=== PATIENT | male | born 1940 | race Caucasian/White ===

== ENCOUNTER 2017-01-18 08:00 | Day surgery (SDC) | payer BC, MEDICARE ==
[~2017-01-18 08:00] MED LIST: ACETAMINOPHEN325 M2 PO; ACYCLOVIR400 M1 PO; ADVIL200 MG; ADVIL200 MG PO; ALBUTEROL2.5 MG/0.1 IH; ALIGN4 M1 PO; AMOX TR-K CLV1 EAC4 PO; AMOXICILLIN875 M1 PO; ANTIVERT12.5 MG PO; ASPIR 8181 M1 PO; ASPIR-TRIN325 M2 PO; ATIVAN0.5 M1 PO; AZITHROMYCIN250 M1 PO; BENTYL10 M1 PO; BENTYL20 M1 PO; CHEMO; CIPRO500 M2 PO; CLEOCIN HCL300 M1 PO; COLACE100 M1 PO; CYCLOBENZAPRINE10 M1 PO; DARVOCET-N 1001 TAB; DEXAMETHASONE4 M1 PO; DIFLUCAN100 M1 PO; DOXYCYCLINE HY100 M3 PO; DURAGESIC1 EAC5 TD; EXTRA STRENGTH500 MG PO; FLAGYL500 M1 PO; FLEXERIL5 MG PO; FLONASE ALLERG9.9 ML; FLOXIN OTIC5 M1 OT; GAS RELIEF125 M4 PO; H PO; HYLANDS LEG CRAMP PO; HYOSCYAMINE0.125 M2 PO; IMODIUM A-D2 M4 PO; IMODIUM MULTI-1 EAC1 PO; IRON325 M1 PO; KEFLEX500 M4 PO; LASIX20 M1 PO; LEVAQUIN750 M1 PO; LEVSIN0.125 M1 SL; LOMOTIL 2.5-0.1 EACH PO; LOVENOX150 MG/1 M SC; METOPROLOL TART25 M1 PO; MILK OF MAGNESIA PO; MIRALAX17 G2 PO; MULTIVITAMINS1 EAC7 PO; NORCO 5-325 TA1 EACH PO; NORCO 5/325 TAB1 TAB PO; NORVASC10 M2 PO; OXYCONTIN; OXYCONTIN10 M2; PAIN RELIEF500 M4 PO; PEPCID20 MG PO; PERCOCET 5-3251 EACH PO; PERCOCET 5/3251 TAB PO; PREDNISONE10 M1 PO; PREDNISONE20 M1 PO; PREDNISONE5 M1 PO; PRINIVIL20 M1 PO; PROBIOTIC BLEN1 EACH PO; PROMETHAZINE HC25 M3 PO; PROMETHAZINE V120 ML PO; REVLIMID; REVLIMID PO; REVLIMID25 M1 PO; SULFAMYLON SOL250 M1 TOP; TESSALON PERLE100 M1 PO; TYLENOL ARTHRI650 M1 PO; TYLENOL ARTHRI650 MG PO; ULTRAM50 M1 PO; VALIUM5 M1 PO; VELCADE3.5 MG/VIA IV; VIBERZI100 MG PO; VOLTAREN100 G1 TD; VOLTAREN100 G1 TOP; XARELTO20 M1 PO; ZANTAC150 M1 PO; ZESTRIL20 M2 PO; ZESTRIL20 M3 PO; ZESTRIL20 MG; ZITHROMAX250 M1 PO; ZOFRAN ODT8 MG PO; ZOMETA; ZOMETA4 MG/5 M1; ZOMETA4 MG/5 M1 IV; ZOVIRAX200 M1 PO; [UNRECOGNIZED DRUG - REMARK]; [UNRECOGNIZED DRUG - REMARK]
[2017-01-18] MEDS ORDERED: INVOKANA100 MG PO (09:14)
[2017-01-18 10:04] LABS: BASO % 0.3 % (0-2); EOS % 1.4 % (0-7); EOSINOPHIL ABSOLUTE COUNT 0.1 tho/cmm (0.0-0.7); HCT-HEMATOCRIT 42.4 % (36.0-53.5); HGB-HEMOGLOBIN 13.8 gm/dl (13.5-17.0); IMMATURE GRANULOCYTES ABSOLUTE 0.06 tho/cmm (0-0.03); IMMATURE GRANULOCYTES PERCENT 0.8 % (0-0.3); LYMPH % 26.2 % (20-45); LYMPH ABSOLUTE COUNT 1.9 tho/cmm (0.8-4.5); MCH (MEAN CORPUSCULAR HGB) 30.1 pg (28.0-32.0); MCHC MEAN CORPUSCULAR HGB CONC 32.5 % (32.0-36.0); MCV (MEAN CELL VOLUME) 92.6 fl (82.0-96.0); MEAN PLATELET VOLUME 9.1 cmc (9.4-12.4); MONO % 9.6 % (0-12); MONOCYTE ABSOLUTE COUNT 0.7 tho/cmm (0.0-1.2); NEUTROPHIL ABSOLUTE COUNT 4.5 tho/cmm (1.6-8.0); NEUTROPHIL-AUTOMATED 4.5 tho/cmm (1.6-8.0); NEUTROPHILS % 61.7 % (40-80); PLATELET COUNT 181 tho/cmm (150-450); RED BLOOD COUNT 4.58 mil/cmm (4.40-5.70); RED CELL DISTRIBUTION WIDTH 15.9 % (12.4-16.4); WHITE BLOOD COUNT 7.4 tho/cmm (4.0-10.0)
[2017-01-18 10:29] LABS: ANION GAP 13 mmol/L (0-20); BLOOD UREA NITROGEN 27 mg/dl (6-24); CALCIUM 8.5 mg/dl (8.5-10.5); CARBON DIOXIDE-VENOUS 27 mmol/L (22-32); CHLORIDE 106 mmol/l (96-110); CREATININE 1.04 mg/dl (0.60-1.30); GLUCOSE 144 mg/dL (70-110); POTASSIUM 3.9 mmol/L (3.7-5.1); SODIUM 142 mmol/L (135-145); eGFR VALUE FOR BLACK 80 mL/Min
[2017-01-19] MEDS ORDERED: NORCO 5-325 TA1 EACH PO (19:45)
[2017-01-19] MEDS ORDERED: CYCLOBENZAPRINE5 M1 PO (21:11)
[2017-02-19] MEDS ORDERED: INVOKANA100 MG PO (12:09)
[2017-02-19] MEDS ORDERED: METOPROLOL TART25 M1 PO (12:09)
[2017-02-19] MEDS ORDERED: XARELTO20 M1 PO (12:09)
[2017-02-19] MEDS ORDERED: NORVASC10 M2 PO (12:09)
[2017-02-19] MEDS ORDERED: HYDROCODON-ACE1 EA16 PO (12:10)
[2017-02-19] MEDS ORDERED: PREDNISONE5 M1 PO (12:10)
[2017-02-19] MEDS ORDERED: ACYCLOVIR400 M1 PO (12:11)
[2017-02-19] MEDS ORDERED: DICLOFENAC SOD100 GM TP (12:11)
[2017-02-19] MEDS ORDERED: VIBERZI100 MG PO (12:12)
[2017-02-19] MEDS ORDERED: DICYCLOMINE HCL20 M1 PO (12:12)
[2017-02-19] MEDS ORDERED: LEG CRAMPS PM PO (12:12)
[2017-02-19] MEDS ORDERED: ZANTAC150 M1 PO (12:13)
[2017-02-19] MEDS ORDERED: CERTAVITE-ANTI1 EACH PO (12:13)
[2017-02-19] MEDS ORDERED: LOPERAMIDE2 M2 PO (12:13)
[2017-02-19] MEDS ORDERED: AREDIA IV (15:31)
[2017-03-28] MEDS ORDERED: DUCODYL5 M1 PO (14:30)
[2017-03-28] MEDS ORDERED: AREDIA (14:32)
[2017-03-28] MEDS ORDERED: BENTYL10 M1 PO (14:33)
[2017-03-28] MEDS ORDERED: DICLOFENAC SOD100 M2 PO (14:35)
[2017-03-28] MEDS ORDERED: VIBERZI100 MG PO (14:37)
[2017-04-06] MEDS ORDERED: ULTRAM50 M1 PO (09:59)
[2017-04-06] MEDS ORDERED: OXYCODONE HCL5 M1 PO (10:00)
[2017-04-06] MEDS ORDERED: MOBIC7.5 M2 PO (10:00)
[2017-04-27] MEDS ORDERED: FLOMAX0.4 M1 PO (11:05)
[2017-04-27] MEDS ORDERED: MOBIC7.5 M2 PO (11:06)
[2017-04-27] MEDS ORDERED: FLUOXETINE HCL10 M2 PO (11:07)
== END 2017-01-18 13:10 ==
LOC: SRG 08:00 → SHSB 08:01 → ORE 11:20 → SHSB 11:58
PROVIDERS: Anesthesiology
PROC: 0Y6P0Z1 Detachment at Right 1st Toe, High, Open Approach (ICD-10-PCS; principal; 2017-01-18)
DX: M86.171 Other acute osteomyelitis, right ankle and foot (principal); L97.519 Non-pressure chronic ulcer of other part of right foot with unspecified severity; M17.0 Bilateral primary osteoarthritis of knee; M50.30 Other cervical disc degeneration, unspecified cervical region; I12.9 Hypertensive chronic kidney disease with stage 1 through stage 4 chronic kidney disease, or unspecified chronic kidney disease; E11.22 Type 2 diabetes mellitus with diabetic chronic kidney disease; N18.3 Chronic kidney disease, stage 3 (moderate); N17.9 Acute kidney failure, unspecified; F41.9 Anxiety disorder, unspecified; K21.9 Gastro-esophageal reflux disease without esophagitis; C90.00 Multiple myeloma not having achieved remission; Z79.01 Long term (current) use of anticoagulants; Z79.52 Long term (current) use of systemic steroids; Z79.84 Long term (current) use of oral hypoglycemic drugs; Z79.899 Other long term (current) drug therapy; Z88.2 Allergy status to sulfonamides; Z87.891 Personal history of nicotine dependence; Z86.718 Personal history of other venous thrombosis and embolism; Z89.421 Acquired absence of other right toe(s); Z89.412 Acquired absence of left great toe; Z98.41 Cataract extraction status, right eye; Z98.42 Cataract extraction status, left eye; Z98.890 Other specified postprocedural states
CPT/HCPCS: J0690; J1720; J2250

== ENCOUNTER 2017-01-19 19:34 | Emergency (ER) | payer BC, MEDICARE ==
[~2017-01-19 19:34] MED LIST changes: +INVOKANA100 MG PO
[2017-01-19] MEDS ORDERED: NORCO 5-325 TA1 EACH PO (19:45)
[2017-01-19] MEDS ORDERED: CYCLOBENZAPRINE5 M1 PO (21:11)
[2017-02-19] MEDS ORDERED: INVOKANA100 MG PO (12:09)
[2017-02-19] MEDS ORDERED: NORVASC10 M2 PO (12:09)
[2017-02-19] MEDS ORDERED: METOPROLOL TART25 M1 PO (12:09)
[2017-02-19] MEDS ORDERED: XARELTO20 M1 PO (12:09)
[2017-02-19] MEDS ORDERED: PREDNISONE5 M1 PO (12:10)
[2017-02-19] MEDS ORDERED: HYDROCODON-ACE1 EA16 PO (12:10)
[2017-02-19] MEDS ORDERED: ACYCLOVIR400 M1 PO (12:11)
[2017-02-19] MEDS ORDERED: DICLOFENAC SOD100 GM TP (12:11)
[2017-02-19] MEDS ORDERED: LEG CRAMPS PM PO (12:12)
[2017-02-19] MEDS ORDERED: DICYCLOMINE HCL20 M1 PO (12:12)
[2017-02-19] MEDS ORDERED: VIBERZI100 MG PO (12:12)
[2017-02-19] MEDS ORDERED: ZANTAC150 M1 PO (12:13)
[2017-02-19] MEDS ORDERED: LOPERAMIDE2 M2 PO (12:13)
[2017-02-19] MEDS ORDERED: CERTAVITE-ANTI1 EACH PO (12:13)
[2017-02-19] MEDS ORDERED: AREDIA IV (15:31)
[2017-03-28] MEDS ORDERED: DUCODYL5 M1 PO (14:30)
[2017-03-28] MEDS ORDERED: AREDIA (14:32)
[2017-03-28] MEDS ORDERED: BENTYL10 M1 PO (14:33)
[2017-03-28] MEDS ORDERED: DICLOFENAC SOD100 M2 PO (14:35)
[2017-03-28] MEDS ORDERED: VIBERZI100 MG PO (14:37)
[2017-04-06] MEDS ORDERED: ULTRAM50 M1 PO (09:59)
[2017-04-06] MEDS ORDERED: OXYCODONE HCL5 M1 PO (10:00)
[2017-04-06] MEDS ORDERED: MOBIC7.5 M2 PO (10:00)
[2017-04-27] MEDS ORDERED: FLOMAX0.4 M1 PO (11:05)
[2017-04-27] MEDS ORDERED: MOBIC7.5 M2 PO (11:06)
[2017-04-27] MEDS ORDERED: FLUOXETINE HCL10 M2 PO (11:07)
== END 2017-01-19 21:44 ==
LOC: EDMED 19:34
DX: M54.5 Low back pain (principal); I10 Essential (primary) hypertension; Z86.718 Personal history of other venous thrombosis and embolism; Z85.79 Personal history of other malignant neoplasms of lymphoid, hematopoietic and related tissues; Z79.899 Other long term (current) drug therapy; Z87.891 Personal history of nicotine dependence
CPT/HCPCS: J2270; J2360

== ENCOUNTER 2017-02-24 21:45 | Inpatient (IN) | payer BC, MEDICARE ==
[~2017-02-24 21:45] MED LIST changes: +AREDIA IV; +CERTAVITE-ANTI1 EACH PO; +CYCLOBENZAPRINE5 M1 PO; +DICLOFENAC SOD100 GM TP; +DICYCLOMINE HCL20 M1 PO; +HYDROCODON-ACE1 EA16 PO; +LEG CRAMPS PM PO; +LOPERAMIDE2 M2 PO
[2017-02-24 22:41] LABS: BASO % 0.3 % (0-2); EOS % 5.7 % (0-7); EOSINOPHIL ABSOLUTE COUNT 0.4 tho/cmm (0.0-0.7); HCT-HEMATOCRIT 40.3 % (36.0-53.5); HGB-HEMOGLOBIN 13.1 gm/dl (13.5-17.0); IMMATURE GRANULOCYTES ABSOLUTE 0.01 tho/cmm (0-0.03); IMMATURE GRANULOCYTES PERCENT 0.1 % (0-0.3); LYMPH % 23.3 % (20-45); LYMPH ABSOLUTE COUNT 1.6 tho/cmm (0.8-4.5); MCH (MEAN CORPUSCULAR HGB) 30.1 pg (28.0-32.0); MCHC MEAN CORPUSCULAR HGB CONC 32.5 % (32.0-36.0); MCV (MEAN CELL VOLUME) 92.6 fl (82.0-96.0); MEAN PLATELET VOLUME 9.1 cmc (9.4-12.4); MONOCYTE ABSOLUTE COUNT 0.7 tho/cmm (0.0-1.2); NEUTROPHIL ABSOLUTE COUNT 4.2 tho/cmm (1.6-8.0); NEUTROPHIL-AUTOMATED 4.2 tho/cmm (1.6-8.0); NEUTROPHILS % 60.6 % (40-80); PLATELET COUNT 202 tho/cmm (150-450); RED BLOOD COUNT 4.35 mil/cmm (4.40-5.70); RED CELL DISTRIBUTION WIDTH 15.3 % (12.4-16.4); WHITE BLOOD COUNT 6.9 tho/cmm (4.0-10.0)
[2017-02-24 22:46] LABS: INR 1.2 INR (0.9-1.1); PROTHROMBIN TIME 13.5 SECONDS (9.0-13.6)
[2017-02-24 23:00] LABS: ALBUMIN 3.4 g/dl (3.5-5.0); ALKALINE PHOSPHATASE 41 U/L (33-138); ALT/SGPT 24 U/L (12-78); AMYLASE 197 U/L (20-90); ANION GAP 15 mmol/L (0-20); AST/SGOT 24 U/L (10-40); BILIRUBIN,TOTAL 0.3 mg/dl (0.0-1.5); BLOOD UREA NITROGEN 18 mg/dl (6-24); CALCIUM 8.7 mg/dl (8.5-10.5); CARBON DIOXIDE-VENOUS 25 mmol/L (22-32); CHLORIDE 105 mmol/l (96-110); GLUCOSE 142 mg/dL (70-110); POTASSIUM 3.9 mmol/L (3.7-5.1); SODIUM 141 mmol/L (135-145); eGFR VALUE FOR BLACK 74 mL/Min
[2017-02-24 23:01] LABS: LIPASE 3638 U/L (73-393)
[2017-02-25 03:36] LABS: MAGNESIUM 1.8 mg/dl (1.8-2.6); PHOSPHOROUS 3.4 mg/dl (2.5-4.9)
[2017-02-25 03:53] LABS: PROCALCITONIN <0.05 ng/ml (0.05-0.09)
[2017-02-25 07:39] LABS: BASO % 0.3 % (0-2); EOS % 4.2 % (0-7); EOSINOPHIL ABSOLUTE COUNT 0.3 tho/cmm (0.0-0.7); HCT-HEMATOCRIT 41.2 % (36.0-53.5); HGB-HEMOGLOBIN 13.5 gm/dl (13.5-17.0); IMMATURE GRANULOCYTES ABSOLUTE 0.02 tho/cmm (0-0.03); IMMATURE GRANULOCYTES PERCENT 0.3 % (0-0.3); LYMPH % 14.1 % (20-45); MCH (MEAN CORPUSCULAR HGB) 30.3 pg (28.0-32.0); MCHC MEAN CORPUSCULAR HGB CONC 32.8 % (32.0-36.0); MCV (MEAN CELL VOLUME) 92.6 fl (82.0-96.0); MEAN PLATELET VOLUME 9.1 cmc (9.4-12.4); MONO % 12.2 % (0-12); MONOCYTE ABSOLUTE COUNT 0.8 tho/cmm (0.0-1.2); NEUTROPHIL ABSOLUTE COUNT 4.7 tho/cmm (1.6-8.0); NEUTROPHIL-AUTOMATED 4.7 tho/cmm (1.6-8.0); NEUTROPHILS % 68.9 % (40-80); PLATELET COUNT 178 tho/cmm (150-450); RED BLOOD COUNT 4.45 mil/cmm (4.40-5.70); RED CELL DISTRIBUTION WIDTH 15.4 % (12.4-16.4); WHITE BLOOD COUNT 6.9 tho/cmm (4.0-10.0)
[2017-02-25 08:29] LABS: ALB/GLOB RATIO 1.2 (0.8-2.0); ALBUMIN 3.6 g/dl (3.5-5.0); ALKALINE PHOSPHATASE 44 U/L (33-138); ALT/SGPT 22 U/L (12-78); AMYLASE 195 U/L (20-90); AST/SGOT 30 U/L (10-40); BILIRUBIN,TOTAL 0.4 mg/dl (0.0-1.5); BLOOD UREA NITROGEN 19 mg/dl (6-24); CALCIUM 8.7 mg/dl (8.5-10.5); CARBON DIOXIDE-VENOUS 23 mmol/L (22-32); CHLORIDE 108 mmol/l (96-110); CREATININE 1.07 mg/dl (0.60-1.30); GLUCOSE 131 mg/dL (70-110); POTASSIUM 4.2 mmol/L (3.7-5.1); eGFR VALUE FOR BLACK 77 mL/Min
[2017-02-25 08:37] LABS: ANION GAP 16 mmol/L (0-20); SODIUM 143 mmol/L (135-145)
[2017-02-25 08:50] LABS: CHOLESTEROL 176 mg/dl (120-200); HDL CHOLESTEROL 32 mg/dl (40-60); LDL CHOLESTEROL 112 mg/dl (0-99); TRIGLYCERIDES 162 mg/dl (<149); VLDL 32 mg/dl (0-30)
[2017-02-25 09:01] LABS: LIPASE 3932 U/L (73-393)
[2017-02-25 12:04] LABS: URINE BILIRUBIN NEGATIVE (NEG); URINE BLOOD NEGATIVE (NEG); URINE GLUCOSE (UA) NEGATIVE (NEG); URINE KETONE NEGATIVE (NEG); URINE LEUKOCYTE ESTERASE NEGATIVE (NEG); URINE NITRITE NEGATIVE (NEG); URINE PROTEIN NEGATIVE (NEG)
[2017-02-25 12:05] LABS: URINE APPEARANCE CLEAR; URINE COLOR YELLOW
--- NOTE | 2017-02-25 22:57 | NUR ---
PT TRANSFERRED TO [facility]ED 543. BEDSIDE REPORT GIVEN. ALL BELONGINGS, MEDS AND SUPPLIES TRANSFERRED.
[2017-02-26 06:15] LABS: BASO % 0.1 % (0-2); EOS % 0.5 % (0-7); HCT-HEMATOCRIT 38.4 % (36.0-53.5); HGB-HEMOGLOBIN 12.4 gm/dl (13.5-17.0); IMMATURE GRANULOCYTES ABSOLUTE 0.02 tho/cmm (0-0.03); IMMATURE GRANULOCYTES PERCENT 0.2 % (0-0.3); LYMPH ABSOLUTE COUNT 0.7 tho/cmm (0.8-4.5); MCH (MEAN CORPUSCULAR HGB) 29.7 pg (28.0-32.0); MCHC MEAN CORPUSCULAR HGB CONC 32.3 % (32.0-36.0); MCV (MEAN CELL VOLUME) 92.1 fl (82.0-96.0); MEAN PLATELET VOLUME 8.9 cmc (9.4-12.4); MONOCYTE ABSOLUTE COUNT 1.1 tho/cmm (0.0-1.2); NEUTROPHIL ABSOLUTE COUNT 6.3 tho/cmm (1.6-8.0); NEUTROPHIL-AUTOMATED 6.3 tho/cmm (1.6-8.0); NEUTROPHILS % 77.2 % (40-80); PLATELET COUNT 168 tho/cmm (150-450); RED BLOOD COUNT 4.17 mil/cmm (4.40-5.70); RED CELL DISTRIBUTION WIDTH 15.6 % (12.4-16.4); WHITE BLOOD COUNT 8.2 tho/cmm (4.0-10.0)
[2017-02-26 07:01] LABS: ALBUMIN 3.1 g/dl (3.5-5.0); ALKALINE PHOSPHATASE 44 U/L (33-138); ALT/SGPT 36 U/L (12-78); AMYLASE 34 U/L (20-90); ANION GAP 12 mmol/L (0-20); AST/SGOT 20 U/L (10-40); BLOOD UREA NITROGEN 13 mg/dl (6-24); CALCIUM 7.7 mg/dl (8.5-10.5); CARBON DIOXIDE-VENOUS 23 mmol/L (22-32); CHLORIDE 108 mmol/l (96-110); CREATININE 0.85 mg/dl (0.60-1.30); GLUCOSE 109 mg/dL (70-110); SODIUM 139 mmol/L (135-145); eGFR VALUE FOR BLACK >90 mL/Min
[2017-02-26 07:05] LABS: BILIRUBIN,TOTAL 0.9 mg/dl (0.0-1.5); C-REACTIVE PROTEIN 9.9 mg/dl (0-0.9); LIPASE 123 U/L (73-393)
[2017-02-27 06:11] LABS: ANION GAP 13 mmol/L (0-20); BLOOD UREA NITROGEN 12 mg/dl (6-24); CALCIUM 7.3 mg/dl (8.5-10.5); CARBON DIOXIDE-VENOUS 22 mmol/L (22-32); CHLORIDE 112 mmol/l (96-110); CREATININE 0.77 mg/dl (0.60-1.30); GLUCOSE 105 mg/dL (70-110); SODIUM 143 mmol/L (135-145); eGFR VALUE FOR BLACK >90 mL/Min
[2017-02-28 05:24] LABS: HGB-HEMOGLOBIN 14.1 gm/dl (13.5-17.0); PLATELET COUNT 204 tho/cmm (150-450)
[2017-02-28 14:07] LABS: ANION GAP 15 mmol/L (0-20); BLOOD UREA NITROGEN 18 mg/dl (6-24); CALCIUM 7.9 mg/dl (8.5-10.5); CARBON DIOXIDE-VENOUS 20 mmol/L (22-32); CHLORIDE 107 mmol/l (96-110); CREATININE 1.01 mg/dl (0.60-1.30); GLUCOSE 151 mg/dL (70-110); MAGNESIUM 1.9 mg/dl (1.8-2.6); PHOSPHOROUS 1.4 mg/dl (2.5-4.9); POTASSIUM 3.6 mmol/L (3.7-5.1); SODIUM 138 mmol/L (135-145); eGFR VALUE FOR BLACK 82 mL/Min
[2017-03-01 06:49] LABS: BASO % 0.2 % (0-2); EOS % 1.5 % (0-7); EOSINOPHIL ABSOLUTE COUNT 0.2 tho/cmm (0.0-0.7); HCT-HEMATOCRIT 36.7 % (36.0-53.5); HGB-HEMOGLOBIN 12.2 gm/dl (13.5-17.0); IMMATURE GRANULOCYTES ABSOLUTE 0.02 tho/cmm (0-0.03); IMMATURE GRANULOCYTES PERCENT 0.2 % (0-0.3); LYMPH % 6.2 % (20-45); LYMPH ABSOLUTE COUNT 0.7 tho/cmm (0.8-4.5); MCH (MEAN CORPUSCULAR HGB) 30.1 pg (28.0-32.0); MCHC MEAN CORPUSCULAR HGB CONC 33.2 % (32.0-36.0); MCV (MEAN CELL VOLUME) 90.6 fl (82.0-96.0); MEAN PLATELET VOLUME 9.2 cmc (9.4-12.4); MONO % 11.5 % (0-12); MONOCYTE ABSOLUTE COUNT 1.3 tho/cmm (0.0-1.2); NEUTROPHIL ABSOLUTE COUNT 9.2 tho/cmm (1.6-8.0); NEUTROPHIL-AUTOMATED 9.2 tho/cmm (1.6-8.0); NEUTROPHILS % 80.4 % (40-80); PLATELET COUNT 173 tho/cmm (150-450); RED BLOOD COUNT 4.05 mil/cmm (4.40-5.70); RED CELL DISTRIBUTION WIDTH 15.1 % (12.4-16.4); WHITE BLOOD COUNT 11.4 tho/cmm (4.0-10.0)
[2017-03-01 07:01] LABS: ANION GAP 14 mmol/L (0-20); BLOOD UREA NITROGEN 15 mg/dl (6-24); CALCIUM 7.8 mg/dl (8.5-10.5); CARBON DIOXIDE-VENOUS 22 mmol/L (22-32); CHLORIDE 106 mmol/l (96-110); CREATININE 0.81 mg/dl (0.60-1.30); GLUCOSE 118 mg/dL (70-110); POTASSIUM 3.8 mmol/L (3.7-5.1); SODIUM 138 mmol/L (135-145); eGFR VALUE FOR BLACK >90 mL/Min
[2017-03-02 05:44] LABS: HGB-HEMOGLOBIN 12.7 gm/dl (13.5-17.0); PLATELET COUNT 201 tho/cmm (150-450)
[2017-03-02 06:02] LABS: ALB/GLOB RATIO 0.7 (0.8-2.0); ALBUMIN 2.7 g/dl (3.5-5.0); ALKALINE PHOSPHATASE 52 U/L (33-138); ALT/SGPT 24 U/L (12-78); ANION GAP 14 mmol/L (0-20); AST/SGOT 17 U/L (10-40); BILIRUBIN,TOTAL 0.7 mg/dl (0.0-1.5); BLOOD UREA NITROGEN 14 mg/dl (6-24); CARBON DIOXIDE-VENOUS 23 mmol/L (22-32); CHLORIDE 105 mmol/l (96-110); CREATININE 0.82 mg/dl (0.60-1.30); GLUCOSE 90 mg/dL (70-110); MAGNESIUM 2.3 mg/dl (1.8-2.6); PHOSPHOROUS 2.1 mg/dl (2.5-4.9); POTASSIUM 3.5 mmol/L (3.7-5.1); SODIUM 138 mmol/L (135-145); eGFR VALUE FOR BLACK >90 mL/Min
[2017-03-02] MEDS ORDERED: NORCO 5-325 TA1 EACH PO (18:06)
[2017-03-02] MEDS ORDERED: REGLAN10 M2 PO (18:07)
[2017-03-03] MEDS ORDERED: DULCOLAX10 MG PR (09:42)
[2017-03-28] MEDS ORDERED: DUCODYL5 M1 PO (14:30)
[2017-03-28] MEDS ORDERED: AREDIA (14:32)
[2017-03-28] MEDS ORDERED: BENTYL10 M1 PO (14:33)
[2017-03-28] MEDS ORDERED: DICLOFENAC SOD100 M2 PO (14:35)
[2017-03-28] MEDS ORDERED: VIBERZI100 MG PO (14:37)
[2017-04-06] MEDS ORDERED: ULTRAM50 M1 PO (09:59)
[2017-04-06] MEDS ORDERED: OXYCODONE HCL5 M1 PO (10:00)
[2017-04-06] MEDS ORDERED: MOBIC7.5 M2 PO (10:00)
[2017-04-27] MEDS ORDERED: FLOMAX0.4 M1 PO (11:05)
[2017-04-27] MEDS ORDERED: MOBIC7.5 M2 PO (11:06)
[2017-04-27] MEDS ORDERED: FLUOXETINE HCL10 M2 PO (11:07)
== END 2017-03-03 10:30 | DRG 417 ==
LOC: EDMED 21:45 → EMR2 02-25 02:41 → PCUA 02-25 07:09 → 5WF 02-25 23:22 → ORW 02-27 09:43 → 5WF 02-27 12:15
PROVIDERS: Emergency Medicine; Family Medicine; Surgery; ADMIT Hospitalist
PROC: 5A09357 Assistance with Respiratory Ventilation, Less than 24 Consecutive Hours, Continuous Positive Airway Pressure (ICD-10-PCS; 2017-02-25)
PROC: 0FT44ZZ Resection of Gallbladder, Percutaneous Endoscopic Approach (ICD-10-PCS; principal; 2017-02-27)
PROC: 0YU54JZ Supplement Right Inguinal Region with Synthetic Substitute, Percutaneous Endoscopic Approach (ICD-10-PCS; 2017-02-27)
DX: K80.10 Calculus of gallbladder with chronic cholecystitis without obstruction (principal); J96.01 Acute respiratory failure with hypoxia; E83.39 Other disorders of phosphorus metabolism; K40.90 Unilateral inguinal hernia, without obstruction or gangrene, not specified as recurrent; I10 Essential (primary) hypertension; C90.01 Multiple myeloma in remission; K85.90 Acute pancreatitis without necrosis or infection, unspecified; K82.8 Other specified diseases of gallbladder; E87.6 Hypokalemia; E11.9 Type 2 diabetes mellitus without complications; Z86.718 Personal history of other venous thrombosis and embolism; Z79.01 Long term (current) use of anticoagulants; M17.11 Unilateral primary osteoarthritis, right knee; K58.0 Irritable bowel syndrome with diarrhea; E66.9 Obesity, unspecified; Z87.891 Personal history of nicotine dependence; Z88.2 Allergy status to sulfonamides; Z68.37 Body mass index [BMI] 37.0-37.9, adult; K44.9 Diaphragmatic hernia without obstruction or gangrene; Z86.010 Personal history of colon polyps; M79.602 Pain in left arm; R07.9 Chest pain, unspecified; K59.00 Constipation, unspecified; R11.2 Nausea with vomiting, unspecified; R14.0 Abdominal distension (gaseous); Z87.19 Personal history of other diseases of the digestive system
CPT/HCPCS: A9537; C1781; C8929; C9113; J1170; J1650; J1815; J1956; J2270; J2405; J2765; J3010; J3480; J7030; J7050; Q9967

== ENCOUNTER 2017-03-13 07:02 | Emergency (ER) | payer BC, MEDICARE ==
[~2017-03-13 07:02] MED LIST changes: +DULCOLAX10 MG PR; +REGLAN10 M2 PO
[2017-03-13 07:43] LABS: BASO % 0.5 % (0-2); EOS % 2.7 % (0-7); EOSINOPHIL ABSOLUTE COUNT 0.2 tho/cmm (0.0-0.7); HCT-HEMATOCRIT 42.9 % (36.0-53.5); IMMATURE GRANULOCYTES ABSOLUTE 0.03 tho/cmm (0-0.03); IMMATURE GRANULOCYTES PERCENT 0.3 % (0-0.3); LYMPH % 21.3 % (20-45); LYMPH ABSOLUTE COUNT 1.9 tho/cmm (0.8-4.5); MCH (MEAN CORPUSCULAR HGB) 30.1 pg (28.0-32.0); MCHC MEAN CORPUSCULAR HGB CONC 32.6 % (32.0-36.0); MCV (MEAN CELL VOLUME) 92.3 fl (82.0-96.0); MONO % 9.9 % (0-12); MONOCYTE ABSOLUTE COUNT 0.9 tho/cmm (0.0-1.2); NEUTROPHIL ABSOLUTE COUNT 5.8 tho/cmm (1.6-8.0); NEUTROPHIL-AUTOMATED 5.8 tho/cmm (1.6-8.0); NEUTROPHILS % 65.3 % (40-80); PLATELET COUNT 289 tho/cmm (150-450); RED BLOOD COUNT 4.65 mil/cmm (4.40-5.70); RED CELL DISTRIBUTION WIDTH 15.6 % (12.4-16.4); WHITE BLOOD COUNT 8.9 tho/cmm (4.0-10.0)
[2017-03-13 08:12] LABS: ALBUMIN 3.4 g/dl (3.5-5.0); ALKALINE PHOSPHATASE 45 U/L (33-138); ALT/SGPT 31 U/L (12-78); BILIRUBIN,TOTAL 0.4 mg/dl (0.0-1.5); BLOOD UREA NITROGEN 19 mg/dl (6-24); CALCIUM 8.7 mg/dl (8.5-10.5); CARBON DIOXIDE-VENOUS 26 mmol/L (22-32); CHLORIDE 104 mmol/l (96-110); CREATININE 1.07 mg/dl (0.60-1.30); GLUCOSE 119 mg/dL (70-110); LIPASE 184 U/L (73-393); SODIUM 139 mmol/L (135-145); eGFR VALUE FOR BLACK 77 mL/Min
[2017-03-13] MEDS ORDERED: HYLAND LEG CRAMPS PO (08:13)
[2017-03-13 08:18] LABS: ANION GAP 13 mmol/L (0-20); AST/SGOT 16 U/L (10-40); POTASSIUM 4.2 mmol/L (3.7-5.1)
[2017-03-13] MEDS ORDERED: TRAZODONE HCL100 M1 PO (10:58)
[2017-03-13] MEDS ORDERED: ENEMA READY-TO133 M1 PR (11:02)
[2017-03-13] MEDS ORDERED: MILK OF MAGNESIA PO (11:07)
[2017-03-28] MEDS ORDERED: DUCODYL5 M1 PO (14:30)
[2017-03-28] MEDS ORDERED: AREDIA (14:32)
[2017-03-28] MEDS ORDERED: BENTYL10 M1 PO (14:33)
[2017-03-28] MEDS ORDERED: DICLOFENAC SOD100 M2 PO (14:35)
[2017-03-28] MEDS ORDERED: VIBERZI100 MG PO (14:37)
[2017-04-06] MEDS ORDERED: ULTRAM50 M1 PO (09:59)
[2017-04-06] MEDS ORDERED: MOBIC7.5 M2 PO (10:00)
[2017-04-06] MEDS ORDERED: OXYCODONE HCL5 M1 PO (10:00)
[2017-04-27] MEDS ORDERED: FLOMAX0.4 M1 PO (11:05)
[2017-04-27] MEDS ORDERED: MOBIC7.5 M2 PO (11:06)
[2017-04-27] MEDS ORDERED: FLUOXETINE HCL10 M2 PO (11:07)
== END 2017-03-13 16:06 ==
LOC: EDMED 07:02
PROVIDERS: Emergency Medicine
DX: R07.89 Other chest pain (principal); I10 Essential (primary) hypertension; E11.9 Type 2 diabetes mellitus without complications; C90.00 Multiple myeloma not having achieved remission; E66.9 Obesity, unspecified; Z86.718 Personal history of other venous thrombosis and embolism; Z90.49 Acquired absence of other specified parts of digestive tract; Z79.01 Long term (current) use of anticoagulants; Z87.891 Personal history of nicotine dependence; Z79.899 Other long term (current) drug therapy; Z88.2 Allergy status to sulfonamides; Z98.49 Cataract extraction status, unspecified eye; Z98.890 Other specified postprocedural states
CPT/HCPCS: C8928; J0461; J1250; J7030